=== PATIENT | male | born 1950 | race Caucasian/White ===

== ENCOUNTER 2017-07-17 09:30 | Inpatient (IN) | payer MEDICARE, MEDICAID ==
[~2017-07-17] VITALS: Ht 170.2 cm; Wt 59.5 kg
[2017-07-17 12:11] LABS: BASOPHILS % (AUTO) 0.2 % (0-1); EOSINOPHILS # (AUTO) 0.1 X10'3 (0-0.9); EOSINOPHILS % (AUTO) 1.6 % (0-6); HEMATOCRIT 27.7 % (42.0-52.0); HEMOGLOBIN 9.3 g/dl (14.0-17.9); LYMPHOCYTES # (AUTO) 0.9 X10'3 (1.1-4.8); LYMPHOCYTES % (AUTO) 17.1 % (21-51); MEAN CORPUSCULAR HEMOGLOBIN 29.2 PG (27.0-31.0); MEAN CORPUSCULAR HGB CONC 33.5 % (33.0-36.5); MEAN CORPUSCULAR VOLUME 87.3 FL (78-98); MEAN PLATELET VOLUME 6.7 FL (7.4-10.4); MONOCYTES # (AUTO) 0.6 X10'3 (0-0.9); MONOCYTES % (AUTO) 10.4 % (2-12); NEUTROPHILS # (AUTO) 3.8 X10'3 (1.8-7.7); NEUTROPHILS % (AUTO) 70.7 % (42-75); PLATELET COUNT 500 X10'3 (140-440); RED BLOOD COUNT 3.18 X10'6 (4.70-6.10); RED CELL DISTRIBUTION WIDTH 17.9 % (11.5-14.5); WHITE BLOOD COUNT 5.4 X10'3 (4.5-11.0)
[2017-07-17 12:24] LABS: ANION GAP 6 (8-16); BLOOD UREA NITROGEN 12 MG/DL (7-18); C-REACTIVE PROTEIN 6.85 MG/DL (0.0-0.5); CALCIUM 8.4 MG/DL (8.5-10.1); CHLORIDE 103 MMOL/L (99-107); GLUCOSE 103 MG/DL (70-104); SODIUM 138 MMOL/L (135-145); TOTAL CARBON DIOXIDE 29.2 MMOL/L (24-32); eGFR > 90 ML/MIN
[2017-07-17] MEDS ORDERED: potassium Cl 20 mEq SR tablet PO PRN ×2 (15:20)
[2017-07-17] MEDS ORDERED: ondansetron/PF 4mg/2ml inj IV PRN ×2 (15:20→15:50)
[2017-07-17] MEDS ORDERED: potassium Cl 40MEQ/NS 500ml 500 ML IV PRN ×2 (15:20)
[2017-07-17] MEDS ORDERED: mag hydrox/Alum hydrox/simeth 30ml oral suspension PO PRN ×2 (15:20→15:50)
[2017-07-17] MEDS ORDERED: oxyCODONE/APAP 10/325mg tablet PO PRN (15:20)
[2017-07-17] MEDS ORDERED: acetaminophen 325mg tablet PO PRN ×4 (15:20→15:50)
[2017-07-17] MEDS ORDERED: magnesium hydroxide 30ml (MOM) UD suspension PO PRN ×2 (15:20→15:50)
[2017-07-17] MEDS ORDERED: furosemide 10 MG/1 ML 10ml inj IV SCH (16:00)
[2017-07-17] MEDS ORDERED: iohexol 350MG/ML 100ml bottle IV ONE (16:07)
[2017-07-17] MEDS ORDERED: iohexol 350 MG/ML 50ML vial IV ONE (16:07)
[2017-07-17] MEDS: vancomycin/NS 1 GM ADD-VANTAGE 250 ML IV SCH (16:52)
[2017-07-17] MEDS ORDERED: polyethylene glycol 3350 17gm powd pack PO SCH (21:00)
[2017-07-17] MEDS ORDERED: temazepam 15mg capsule PO PRN ×2 (21:00)
[2017-07-17 22:30] VITALS: BP 117/57
[2017-07-18] MEDS: vancomycin/NS 1 GM ADD-VANTAGE 250 ML IV SCH (04:20)
[2017-07-18] MEDS: HYDROcodone/acetaminophen 5mg/325mg tablet PO PRN (04:45)
[2017-07-18 05:16] LABS: BASOPHILS % (AUTO) 0.2 % (0-1); EOSINOPHILS # (AUTO) 0.1 X10'3 (0-0.9); EOSINOPHILS % (AUTO) 1.7 % (0-6); HEMATOCRIT 26.2 % (42.0-52.0); HEMOGLOBIN 8.7 g/dl (14.0-17.9); LYMPHOCYTES % (AUTO) 17.4 % (21-51); MEAN CORPUSCULAR HGB CONC 33.1 % (33.0-36.5); MEAN CORPUSCULAR VOLUME 87.8 FL (78-98); MEAN PLATELET VOLUME 7.2 FL (7.4-10.4); MONOCYTES # (AUTO) 0.5 X10'3 (0-0.9); MONOCYTES % (AUTO) 9.5 % (2-12); NEUTROPHILS # (AUTO) 4.1 X10'3 (1.8-7.7); NEUTROPHILS % (AUTO) 71.2 % (42-75); PLATELET COUNT 486 X10'3 (140-440); RED BLOOD COUNT 2.99 X10'6 (4.70-6.10); RED CELL DISTRIBUTION WIDTH 17.3 % (11.5-14.5); WHITE BLOOD COUNT 5.7 X10'3 (4.5-11.0)
[2017-07-18 05:41] LABS: ALBUMIN 1.9 G/DL (3.4-5.0); ANION GAP 9 (8-16); BLOOD UREA NITROGEN 9 MG/DL (7-18); BUN/CREATININE RATIO 14.1 (5.4-32.0); CALCIUM 8.4 MG/DL (8.5-10.1); CHLORIDE 103 MMOL/L (99-107); CREATININE 0.64 MG/DL (0.60-1.10); GLUCOSE 90 MG/DL (70-104); POTASSIUM 3.5 MMOL/L (3.5-5.1); SODIUM 140 MMOL/L (135-145); TOTAL CARBON DIOXIDE 27.6 MMOL/L (24-32); eGFR > 90 ML/MIN
[2017-07-18 08:00] VITALS: BP 93/50
[2017-07-18] MEDS ORDERED: K and/or MAG REPLACEMENT MC SCH (08:00)
[2017-07-18] MEDS: enoxaparin 40mg/0.4ml syringe SQ SCH (08:29)
[2017-07-18] MEDS ORDERED: OMEP20CA10 PO (09:32)
[2017-07-18] MEDS ORDERED: CEPH-572 PO (09:32)
[2017-07-18] MEDS ORDERED: BISA-155 PO (09:33)
[2017-07-18] MEDS ORDERED: FERR-119 PO (09:35)
[2017-07-18] MEDS ORDERED: ASCO500C15 PO (09:36)
[2017-07-18] MEDS ORDERED: MED PASS SUPPLEMENT PO (09:39)
[2017-07-18 12:00] VITALS: BP 101/53
[2017-07-18] MEDS ORDERED: bisacodyl 5mg tablet.DR PO PRN (13:15)
[2017-07-18 18:30] VITALS: BP 92/45
[2017-07-18] MEDS ORDERED: MED PASS SUPPLEMENT PO SCH (21:00)
[2017-07-19] VITALS: BP 122/66
[2017-07-19] MEDS ORDERED: VANCOMYCIN LEVEL IV NR (03:30)
[2017-07-19] MEDS: HYDROcodone/acetaminophen 5mg/325mg tablet PO PRN (05:30)
[2017-07-19 05:32] LABS: BASOPHILS % (AUTO) 0.2 % (0-1); EOSINOPHILS # (AUTO) 0.1 X10'3 (0-0.9); EOSINOPHILS % (AUTO) 1.5 % (0-6); HEMATOCRIT 26.6 % (42.0-52.0); HEMOGLOBIN 8.9 g/dl (14.0-17.9); LYMPHOCYTES # (AUTO) 1.2 X10'3 (1.1-4.8); LYMPHOCYTES % (AUTO) 20.9 % (21-51); MEAN CORPUSCULAR HEMOGLOBIN 29.3 PG (27.0-31.0); MEAN CORPUSCULAR HGB CONC 33.5 % (33.0-36.5); MEAN CORPUSCULAR VOLUME 87.5 FL (78-98); MEAN PLATELET VOLUME 7.3 FL (7.4-10.4); MONOCYTES # (AUTO) 0.6 X10'3 (0-0.9); MONOCYTES % (AUTO) 10.1 % (2-12); NEUTROPHILS # (AUTO) 3.6 X10'3 (1.8-7.7); NEUTROPHILS % (AUTO) 67.3 % (42-75); PLATELET COUNT 503 X10'3 (140-440); RED BLOOD COUNT 3.04 X10'6 (4.70-6.10); RED CELL DISTRIBUTION WIDTH 16.9 % (11.5-14.5); WHITE BLOOD COUNT 5.5 X10'3 (4.5-11.0)
[2017-07-19 05:34] LABS: ANION GAP 7 (8-16); BLOOD UREA NITROGEN 9 MG/DL (7-18); BUN/CREATININE RATIO 14.1 (5.4-32.0); CALCIUM 8.5 MG/DL (8.5-10.1); CHLORIDE 102 MMOL/L (99-107); CREATININE 0.64 MG/DL (0.60-1.10); GLUCOSE 106 MG/DL (70-104); SODIUM 138 MMOL/L (135-145); TOTAL CARBON DIOXIDE 28.7 MMOL/L (24-32); eGFR > 90 ML/MIN
[2017-07-19 06:25] LABS: % IRON SATURATION 15 % (11-46); IRON 29 UG/DL (53-167); TOTAL IRON BINDING CAPACITY 194 UG/DL (259-388)
[2017-07-19] MEDS ORDERED: magnesium 2GM in 50ml NS 50 ML IV PRN (06:50)
[2017-07-19] MEDS ORDERED: potassium Cl 40MEQ/NS 500ml 500 ML IV PRN ×2 (06:50)
[2017-07-19] MEDS ORDERED: potassium Cl 20 mEq SR tablet PO PRN (06:50)
[2017-07-19] MEDS ORDERED: magnesium Cl slow-release 64mg tablet PO PRN (06:50)
[2017-07-19] MEDS ORDERED: magnesium 4gm in 100ml NS 100 ML IV PRN (06:50)
[2017-07-19 08:00] VITALS: BP 117/66
[2017-07-19] MEDS ORDERED: non-formulary drug (Omeprazole 1 CAP) PO SCH (08:00)
[2017-07-19] MEDS ORDERED: non-formulary drug (Ascorbic Acid (Vitamin C) 1 CAP) PO SCH (08:00)
[2017-07-19] MEDS: pantoprazole 40mg Tablet.DR PO SCH (08:25)
[2017-07-19] MEDS: ferrous sulfate 325mg tablet PO SCH (08:25)
[2017-07-19] MEDS: ascorbic acid 500mg tablet PO SCH (08:27)
[2017-07-19] MEDS: enoxaparin 40mg/0.4ml syringe SQ SCH (08:28)
[2017-07-19 11:00] VITALS: BP 95/46
[2017-07-19] MEDS: potassium Cl 20 mEq SR tablet PO PRN ×2 (14:55→22:28)
[2017-07-19] MEDS ORDERED: LACTOSE-FREE FOOD 237ML (BOOST) PO SCH (18:00)
[2017-07-19] MEDS: cilostazol 50mg tablet PO SCH (18:30)
[2017-07-19 20:00] VITALS: BP 115/63
[2017-07-19] MEDS: aspirin 325mg tablet, delayed-release (Ecotrin) PO SCH (22:28)
[2017-07-20] VITALS: BP 118/75
[2017-07-20 05:46] LABS: BASOPHILS % (AUTO) 0.3 % (0-1); EOSINOPHILS # (AUTO) 0.1 X10'3 (0-0.9); EOSINOPHILS % (AUTO) 2.6 % (0-6); HEMATOCRIT 26.5 % (42.0-52.0); HEMOGLOBIN 8.8 g/dl (14.0-17.9); LYMPHOCYTES # (AUTO) 1.4 X10'3 (1.1-4.8); MEAN CORPUSCULAR HEMOGLOBIN 28.9 PG (27.0-31.0); MEAN CORPUSCULAR HGB CONC 33.2 % (33.0-36.5); MEAN PLATELET VOLUME 7.1 FL (7.4-10.4); MONOCYTES # (AUTO) 0.5 X10'3 (0-0.9); MONOCYTES % (AUTO) 11.2 % (2-12); NEUTROPHILS # (AUTO) 2.8 X10'3 (1.8-7.7); NEUTROPHILS % (AUTO) 57.9 % (42-75); PLATELET COUNT 480 X10'3 (140-440); RED BLOOD COUNT 3.05 X10'6 (4.70-6.10); RED CELL DISTRIBUTION WIDTH 17.5 % (11.5-14.5); WHITE BLOOD COUNT 4.9 X10'3 (4.5-11.0)
[2017-07-20 06:06] LABS: ALBUMIN 1.9 G/DL (3.4-5.0); ANION GAP 6 (8-16); BLOOD UREA NITROGEN 7 MG/DL (7-18); CALCIUM 8.7 MG/DL (8.5-10.1); CHLORIDE 106 MMOL/L (99-107); GLUCOSE 98 MG/DL (70-104); MAGNESIUM 1.7 MG/DL (1.5-2.4); POTASSIUM 4.2 MMOL/L (3.5-5.1); SODIUM 141 MMOL/L (135-145); TOTAL CARBON DIOXIDE 28.7 MMOL/L (24-32); eGFR > 90 ML/MIN
[2017-07-20] MEDS: ferrous sulfate 325mg tablet PO SCH (07:40)
[2017-07-20] MEDS: ascorbic acid 500mg tablet PO SCH (07:40)
[2017-07-20] MEDS: enoxaparin 40mg/0.4ml syringe SQ SCH (07:40)
[2017-07-20] MEDS: pantoprazole 40mg Tablet.DR PO SCH (07:40)
[2017-07-20] MEDS: cilostazol 50mg tablet PO SCH (07:40)
[2017-07-20] MEDS: aspirin 325mg tablet, delayed-release (Ecotrin) PO SCH (07:40)
[2017-07-20 08:00] VITALS: BP 111/62
[2017-07-20 11:00] VITALS: BP 93/49
[2017-07-20 12:05] VITALS: BP 106/55
== END 2017-07-20 15:05 | DRG 564 ==
LOC: ER 09:31 → ED HOLD 15:20 → SUR 3N 22:15
PROVIDERS: ADMIT Hospitalist; ATTEND Internal Medicine
PROC: B4201ZZ Computerized Tomography (CT Scan) of Abdominal Aorta using Low Osmolar Contrast (ICD-10-PCS; principal; 2017-07-17)
PROC: B4241ZZ Computerized Tomography (CT Scan) of Superior Mesenteric Artery using Low Osmolar Contrast (ICD-10-PCS; 2017-07-17)
PROC: B4281ZZ Computerized Tomography (CT Scan) of Bilateral Renal Arteries using Low Osmolar Contrast (ICD-10-PCS; 2017-07-17)
PROC: B42H1ZZ Computerized Tomography (CT Scan) of Bilateral Lower Extremity Arteries using Low Osmolar Contrast (ICD-10-PCS; 2017-07-17)
PROC: B4211ZZ Computerized Tomography (CT Scan) of Celiac Artery using Low Osmolar Contrast (ICD-10-PCS; 2017-07-17)
DX: T87.89 Other complications of amputation stump (principal); E43 Unspecified severe protein-calorie malnutrition; L89.150 Pressure ulcer of sacral region, unstageable; L89.609 Pressure ulcer of unspecified heel, unspecified stage; M46.28 Osteomyelitis of vertebra, sacral and sacrococcygeal region; M86.8X6 Other osteomyelitis, lower leg; M86.672 Other chronic osteomyelitis, left ankle and foot; R62.50 Unspecified lack of expected normal physiological development in childhood; D63.8 Anemia in other chronic diseases classified elsewhere; Y83.5 Amputation of limb(s) as the cause of abnormal reaction of the patient, or of later complication, without mention of misadventure at the time of the procedure; I73.9 Peripheral vascular disease, unspecified; E87.6 Hypokalemia; I35.0 Nonrheumatic aortic (valve) stenosis; Z89.422 Acquired absence of other left toe(s); Y92.89 Other specified places as the place of occurrence of the external cause; Z68.20 Body mass index [BMI] 20.0-20.9, adult
CPT/HCPCS: 36415; 73620; 75635; 80048; 82607; 82746; 83540; 83550; 83735; 85025; 85651; 86140; 93306; 93922; 97110; 97161; 97530; 99285; A4649; A6196; A6212; A6213; A6253; A6258; A6446; A6449; J1650; J3370; J7030; Q9967